=== PATIENT | female | born 1995 | race Caucasian/White ===

== ENCOUNTER 2016-07-24 17:44 | Emergency (ER) | payer OTHER ==
--- NOTE | ~2016-07-24 | CR2 ---
[facility] A Service of [facility] & [facility] / [facility] RADIOLOGY TEXT RESULTS PATIENT: OMKAR HERNANDEZ LOCATION: SED : [birth year] UNIT #: [id number] AGE: [address]: JUWAN ANGELES PA-C SEX: F ORDER DR: [id number] [address] [id number] E MR#: [id number] Acc #: [id number] NAME: OMKAR HERNANDEZ : 1995 SEX: F STUDY DATE/TIME: 07/24/2016 18:22 UNIT: SED ROOM: STUDY DESCRIPTION: CR Abdomen Acute Series Attending Physician: Juwan Angeles Pa-C Ordering Physician: Aguilar Not Listed Primary Care Physician: No Primary Care Physician MEDICAL IMAGING REPORT This report is preliminary unless electronic signature is present. EXAM Acute abdomen series. HISTORY Abdominal pain and vomiting today. FINDINGS Flat and upright views of the abdomen and upright view of the chest demonstrate bowel gas pattern is normal. No bowel dilatation or displacement. No free air. Mild left lumbar curve and right mid thoracic curve. Upright view of the chest demonstrates the lungs are clear. Cardiac size and pulmonary vascularity are normal. IMPRESSION No acute findings. Bowel gas pattern is normal. Dictated by... Praveen Keith M.D. THIS IS AN ELECTRONICALLY VERIFIED REPORT Praveen Keith M.D. at 07/24/2016 11:27 PM KATIE/graciela TD: 07/24/2016 19:01 JOB #: [id number] MEDICAL IMAGING REPORT Page 1 of 1
[2016-07-24 17:38] LABS: URINE SOURCE CLEAN CATCH
[2016-07-24 17:40] LABS: URINE APPEARANCE CLEAR; URINE BILIRUBIN NEG (NEG); URINE BLOOD NEG (NEG); URINE COLOR YELLOW; URINE GLUCOSE NEG (NORM); URINE KETONE TRACE (NEG); URINE LEUKOCYTE ESTERASE 2+ (NEG); URINE NITRATE NEG (NEG); URINE PROTEIN NEG (NEG); URINE UROBILINOGEN 0.2 MG/DL (NORM)
[~2016-07-24 17:44] MED LIST: MACROBID100 M1 PO; PRENATAL1 TA1 PO; ZOFRAN ODT4 MG/UDTAB PO
[2016-07-24 17:48] LABS: MICRO INDICATED? YES
[2016-07-24 17:54] LABS: CULTURE INDICATED? YES; URINE BACTERIA 1+ (NEG); URINE RBC 0-2 /[HPF] (0-2); URINE SQUAMOUS EPITHELIAL CELL MODERATE /[HPF]
[2016-07-24 18:01] LABS: INFLUENZA A NEG (NEG); INFLUENZA B NEG (NEG)
[2016-07-26] MEDS ORDERED: AMOXICILLIN875 MG PO (09:29)
== END 2016-07-24 19:21 | disposition home or self-care (01) ==
LOC: SED 17:44
PROVIDERS: Physician Assistant
DX: N30.00 Acute cystitis without hematuria (principal); R11.2 Nausea with vomiting, unspecified; R19.7 Diarrhea, unspecified; J45.909 Unspecified asthma, uncomplicated; F17.210 Nicotine dependence, cigarettes, uncomplicated; Z90.89 Acquired absence of other organs
CPT/HCPCS: 74022; 81003; 84703; 87086; 87651; 87804; 96372; 99284; J1885